=== PATIENT | female | born 1975 | race Hispanic/Latino ===

== ENCOUNTER 2016-09-14 17:33 | Emergency (ER) | payer OTHER ==
[~2016-09-14] VITALS: Ht 157.5 cm; Wt 73.7 kg
[~2016-09-14 17:33] MED LIST: FLEXERIL10 MG PO; NAPROSYN500 MG PO
[2016-09-14 18:20] LABS: ADD MIUA? YES; BILIRUBIN NEGATIVE; BLOOD SMALL; COLOR YELLOW ((YELLOW)); GLUCOSE (STRIP) NEGATIVE; KETONES NEGATIVE; LEUKOCYTES NEGATIVE; NITRITE NEGATIVE; PROTEIN (STRIP) NEGATIVE; SPECIFIC GRAVITY 1.026 (1.000-1.030); UROBILINOGEN 0.2 MG/DL (0.2-1.0)
[2016-09-14 18:32] LABS: BACTERIA 1+; CASTS NONE SEEN /LPF; CRYSTALS NONE SEEN; EPITHELIAL CELLS 1+; MUCUS NONE SEEN; PATHOLOGICAL CAST NONE SEEN; SMALL ROUND CELL NONE SEEN; UCUL ADDED? NO; WHITE BLOOD CELLS 0-5 /HPF (0-5); YEAST-LIKE CELL NONE SEEN
[2016-09-14 19:03] LABS: HEMATOCRIT 41.4 % (36.0-46.0); MCH 30.3 PG (29.0-34.0); MCHC 33.6 G/DL (30.0-36.0); MCV 90.2 FL (83-99); MEAN PLAT.VOLUME 10.6 uM^3 (9.5-12.4); PLATELET COUNT 227 K/uL (156-360); RBC DIS.WIDTH-CV 12.7 % (11.8-14.6); RBC DIS.WIDTH-SD 41.4 % (39-53); RED BLOOD COUNT 4.59 M/uL (3.80-5.20); WHITE BLOOD COUNT 6.4 K/uL (4.1-10.2)
[2016-09-14 19:12] LABS: CHLORIDE 105 mEq/L (99-109); POTASSIUM 3.9 mEq/L (3.7-5.4); SODIUM 141 mEq/L (136-147)
[2016-09-14 19:14] LABS: GLUCOSE 102 mg/dL (70-99)
[2016-09-14 19:16] LABS: ANION GAP 9 MEQ/L (2-14)
[2016-09-14 19:18] LABS: GFR ESTIMATE (CALCULATED) > 59 mL/min/
[2016-09-14 19:19] LABS: UREA NITROGEN (BUN) 15 mg/dL (9-23)
[2016-09-14 19:56] LABS: TOTAL BILIRUBIN 0.3 mg/dL (0.0-1.0)
[2016-09-14 19:57] LABS: ALKALINE PHOSPHATASE 55 IU/L (3-129)
[2016-09-14 19:59] LABS: DIRECT BILIRUBIN 0.1 mg/dL (0.0-0.3)
[2016-09-14 20:00] LABS: LIPASE 25 U/L (1.0-51.0)
[2016-09-14 20:06] LABS: QUANTITATIVE HCG < 4.0 MIU/ML
[2016-09-14] MEDS ORDERED: ULTRACET1 TABLET PO (22:36)
[2016-09-14] MEDS ORDERED: NAPROSYN500 MG PO (22:36)
[2016-09-14] MEDS ORDERED: ZOFRAN ODT4 MG PO (22:36)
[2016-09-14] MEDS ORDERED: BENTYL20 MG PO (22:39)
[2016-09-14] MEDS ORDERED: KEFLEX500 MG PO (22:57)
[2016-09-14 23:11] VITALS: BP 119/76
[2016-09-15 11:57] LABS: CHLAMYDIA TRACHOMATIS NEGATIVE; NEISSERIA GONORRHOEAE NEGATIVE
== END 2016-09-14 23:15 | disposition home or self-care (01) ==
LOC: EXP 17:33 → EME 17:33 → EXP 23:15
PROVIDERS: Physician Assistant
DX: R10.2 Pelvic and perineal pain (principal); R10.9 Unspecified abdominal pain; R35.0 Frequency of micturition; N76.0 Acute vaginitis; Z87.440 Personal history of urinary (tract) infections
CPT/HCPCS: 74176; 76705; 80048; 80076; 81003; 83690; 84702; 85027; 87086; 87210; 87491; 87591; 99281; 99283; J3010

== ENCOUNTER 2016-12-02 14:54 | Emergency (ER) | payer OTHER ==
[~2016-12-02] VITALS: Ht 157.5 cm; Wt 76.8 kg
[~2016-12-02 14:54] MED LIST changes: +BENTYL20 MG PO; +KEFLEX500 MG PO; +ULTRACET1 TABLET PO; +ZOFRAN ODT4 MG PO
[2016-12-02] MEDS ORDERED: MOBIC7.5 MG PO (16:39)
[2016-12-02 17:38] LABS: INFLUENZA A VIRAL ANTIGEN NEGATIVE; INFLUENZA B VIRAL ANTIGEN NEGATIVE
[2016-12-02] MEDS ORDERED: TESSALON PERLE100 MG PO (17:54)
[2016-12-02] MEDS ORDERED: FLONASE16 G1 BOTH NARES (17:54)
[2016-12-02] MEDS ORDERED: VENTOLIN HFA18 GM IH (17:54)
[2016-12-02] MEDS ORDERED: MOTRIN800 MG PO (17:55)
[2016-12-02 18:16] VITALS: BP 121/78
== END 2016-12-02 18:18 | disposition home or self-care (01) ==
LOC: EME 14:54
PROVIDERS: Physician Assistant
DX: J06.9 Acute upper respiratory infection, unspecified (principal); J20.8 Acute bronchitis due to other specified organisms
CPT/HCPCS: 71020; 87502; 99281; 99284

== ENCOUNTER → 2018-02-15 | Outpatient (CLI) | payer OTHER ==
[~2018-02-15] MED LIST changes: +FLONASE16 G1 BOTH NARES; +MOBIC7.5 MG PO; +MOTRIN800 MG PO; +OSTERA TABLET1 EACH PO; +TESSALON PERLE100 MG PO; +VENTOLIN HFA18 GM IH
== END | disposition home or self-care (01) ==
LOC: AMB 13:00
DX: R31.29 Other microscopic hematuria (principal); R10.2 Pelvic and perineal pain; R39.15 Urgency of urination; R35.0 Frequency of micturition; F41.8 Other specified anxiety disorders; R73.03 Prediabetes
CPT/HCPCS: 88108; 99213